=== PATIENT | female | born 1955 | race Caucasian/White ===

== ENCOUNTER 2024-09-30 10:09 | Emergency (ER) | payer MEDICARE ==
[~2024-09-30] VITALS: Ht 172.7 cm; Wt 90.7 kg
[2024-09-30 10:23] VITALS: BP 136/93; PULSE 67; RESP 16; TEMP 98.3
--- NOTE | 2024-09-30 11:30 | ERN ---
ED Note History of Present Illness Stated Complaint: VAGINAL PROBLEMS Chief Complaint: Vaginal Problems/Bleeding Time Seen by MD: 10:11 Time Seen by Midlevel: 10:11 Dictation: 68-year-old female presents to the ED for evaluation of possible vaginal pro trusion ongoing for multiple months. Patient reports she can feel something coming out of the vaginal canal and is able to push it back in.Patient is describing it as a heaviness sensation and reports urinary incontinence, but denies any abdominal pain, dysuria, hematuria or any other associated symptoms at this time. Allergies: Coded Allergies: No Known Drug Allergies (Unverified Allergy, Unknown, 09/30/24) Home Meds Active Scripts Cephalexin (Cephalexin) 500 Mg Tablet, 500 MG PO BID for 7 Days, #14 TAB Prov:HEATHER BUTLER 09/30/24 Past Medical History Past Medical History: No Pertinent History Surgical History: Other Surgical History Other: KNEE REPLACEMENT : 2 Para: 1 Aborts: 1 Review of System Dictation Constitutional: Negative for fever,chills, and weight loss Eyes: Negative for injury, pain,redness, and discharge ENT: Negative for injury,pain or swelling Cardiovascular: Negative for chest pain, palpitations, and edema Respiratory: Negative for shortness of breath, cough, and wheezing, Abdomen/GI: Negative for abdominal pain, nausea, vomiting, diarrhea, and constipation Back: Negative for injury and pain : Positive for vaginal protrusion, urinary incontinence Negative for injury, bleeding and discharge MS/Extremity: Negative for injury and deformity Skin: Negative for rash, and discoloration Neuro: Negative for headache, weakness, numbness, tingling, and seizure Psych: Negative for suicide ideation, homicidal ideation, and hallucinations Initial Vital Sign VS Vital Signs Date Time Temp Pulse Resp B/P (MAP) Pulse Ox O2 Delivery O2 Flow Rate FiO2 09/30/24 10:23 98.2 67 16 136/93 98 Room Air 0 Physical Exam Dictation General: awake, alert, no acute distress Head/Face: Normocephalic, atraumatic Eyes: PERRL, EOMI, normal conjunctiva ENT: oral cavity clear, oral mucosa moist Neck: Supple, normal range of motion Cardiovascular: RRR, normal S1/S2 Respiratory: no respiratory distress Abdomen: Soft, non-tender, non-distended, no guarding or rebound. : Vaginal pelvic organ prolapse noted Skin: Warm, dry, normal turgor, no rash MS/Extremity: Pulses equal, no cyanosis, neurovascular intact, FROM Neuro: COAx4, GCS 15, no neurological deficits, normal gait Psych: Normal behavior, mood, and affect normal Results (Laboratory/Radiology) Laboratory/Radiology Laboratory Tests Test 09/30/24 11:41 Urine Color YELLOW (YELLOW) Urine Appearance CLEAR (CLEAR) Urine pH 5.5 (5.0-8.0) Urine Specific [place] 1.014 (1.001-1.031) Urine Protein NEGATIVE mg/dL (NEGATIVE) Urine Glucose (UA) NEGATIVE mg/dL (NEGATIVE) Urine Ketones NEGATIVE mg/dL (NEGATIVE) Urine Occult Blood SMALL (NEGATIVE) H Urine Nitrate NEGATIVE (NEGATIVE) Urine Bilirubin NEGATIVE mg/dL (NEGATIVE) Urine Urobilinogen 0.2 mg/dL (0.2-1.0) Urine Leukocyte Esterase 500 Chava/uL (NEGATIVE) H Urine RBC 2-5 /HPF (0-1) H Urine WBC 6-10 /HPF (0-1) H Urine Squamous Epithelial Cells FEW /HPF (0-2) Urine Bacteria FEW /HPF (None Seen) Labs Reviewed?: Yes ED Course ED Course Orders Procedure Category Date Status Time Urinalysis LAB 09/30/24 Complete W/Microscopic 11:00 Culture Urine JUVENCIO 09/30/24 In Process 12:06 Ceftriaxone 1g Vial PHA 09/30/24 Complete (Rocephine 1g Inj) 13:00 Current Medications Medications (Trade) Dose Ordered Sig/Marina Route PRN Reason Start Time Stop Time Status Last Admin Dose Admin Ceftriaxone Sodium (ROCEphine 1G INJ) 1 gm ONCE ONCE IM 09/30/24 13:00 09/30/24 13:01 DC 09/30/24 12:51 Vital Signs Date Time Temp Pulse Resp B/P (MAP) Pulse Ox O2 Delivery O2 Flow Rate FiO2 09/30/24 10:23 98.2 67 16 136/93 98 Room Air 0 Medical Decision Making MDM MDM: Differential diagnosis: Vaginal prolapse, vaginal protrusion, bladder prolapse Rationale: 68-year-old female presents to the ED for evaluation of possible vaginal protrusion. Patient reports she can feel something coming out of the vaginal canal and is able to push it back in.Patient is describing it as a heaviness sensation and reports urinary incontinence, but denies any abdominal pain, dysuria, hematuria or any other associated symptoms at this time. Per physical examination mild pelvic organ prolapse noted with no vaginal discharge, lesions or injuries. UA obtained indicating urinary tract infection therefore patient was prescribed antibiotics for outpatient treatment. Findings and diagnosis was discussed with patient who verbalized she is a winter [place] and would like to return home for further care. Advised to follow up with PCP. Return to the emergency department if any worsening symptoms. Patient verbalized understanding. Patient is stable for discharge. Previous outside records reviewed: Old ER visits. Risk of complication and/or morbidity or mortality of patient management: None Medications-Per medication reconciliation Need for hospitalization: Patient does meet criteria for hospitalization. Need for emergency major/minor surgery: No There are no social concerns with this patient. Prescription drug management Prescriptions will include symptomatic care Patient's prior external medical records from other ER visits were reviewed by me as indicated. Prior testing and results from previous visits were reviewed. Prior tests were taken into account with medical decision making and resource utilization, independent historian/historians were used to obtain complete medical history. I independently interpreted the test that were performed, results were reviewed by me and considered findings on radiology if ordered. Medical management and examination interpretation discussions were had by me with other qualified healthcare professionals as indicated for the patient's care. DX & DISP Disposition: Discharge Departure Impression: Primary Impression: Prolapse of female pelvic organs Additional Impression: Urinary tract infection Condition: Stable Scripts Cephalexin (Cephalexin) 500 Mg Tablet 500 MG PO BID for 7 Days, #14 TAB Prov: HEATHER BUTLER 09/30/24 Additional Instructions: Discharge home. Rest. Follow up with primary care DrAlfred in 24 hours. Return to the ER for any acute changes or worsening symptoms. If any medications were prescribed take as directed. Okay to continue home medications unless otherwise discussed during your visit in the emergency room today. Patient was also advised to follow-up with primary care physician in 1 to 2 days for continued monitoring. Referrals: SELF,REFERRAL (PCP) I have reviewed, & agreed with my scribe's, documentation. (Raquel Hackett am scribing for Heather Butler) I performed the substantive portion of the visit. I have reviewed and per sonally made and approve the management plan that is documented in the notes by myself or the KAVON. I acknowledge full responsibility for the patient's management plan. I personally scribed for HEATHER BUTLER ([email or web address]) on 09/30/24 at 11:29. Electronically submitted by Raquel Parker ([email or web address]). HEATHRE BUTLER Sep 30, 2024 11:29
[2024-09-30 12:00] LABS: APPEARANCE,URINE CLEAR (CLEAR); BILIRUBIN,URINE NEGATIVE (NEGATIVE); COLOR,URINE YELLOW (YELLOW); GLUCOSE, URINE (UA) NEGATIVE (NEGATIVE); KETONES,URINE NEGATIVE (NEGATIVE); LEUKOCYTE ESTERASE ,URINE 500 Leu/uL (NEGATIVE); NITRATE,URINE NEGATIVE (NEGATIVE); OCCULT BLOOD,URINE SMALL (NEGATIVE); PH,URINE 5.5 (5.0-8.0); PROTEIN,URINE NEGATIVE (NEGATIVE); UROBILINOGEN,URINE 0.2 mg/dL (0.2-1.0)
[2024-09-30 12:07] LABS: BACTERIA,URINE FEW /HPF (None Seen); SQUAMOUS EPITHELIAL CELL,UR FEW /HPF (0-2)
[2024-09-30] MEDS ORDERED: CEPH500T PO (12:44)
[2024-09-30] MEDS: cefTRIAXone 1G VIAL IM ONE (12:51)
--- NOTE | 2024-09-30 12:58 | NUR ---
pt refused medication and left prior to administration
== END 2024-09-30 13:03 | disposition home or self-care (01) ==
LOC: EDH 10:09
DX: N81.89 Other female genital prolapse (principal); N39.0 Urinary tract infection, site not specified; Z96.659 Presence of unspecified artificial knee joint; Z79.899 Other long term (current) drug therapy
CPT/HCPCS: 99283; 87086; 81001; 96372; J0696